=== PATIENT | female | born 1975 | race Caucasian/White ===

== ENCOUNTER 2022-03-09 16:38 | Emergency (ER) | payer MEDICAID, SELFPAY ==
[2022-03-09 16:39] VITALS: BP 142/92; PULSE 131; RESP 18; TEMP 36.2; O2SAT 99; BMI 20.5
--- NOTE | 2022-03-09 20:10 | ED.RN ---
PT STATES SHE HAS ONLY BEEN CONSUMING ETOH FOR PAST 3 DAYS. ADMITS TO9 APPROX 1 PINT OF 80% VODKA PER DAY. FRIEND AT BEDSIDE STATING PT HAS BEEN DRINKING MUCH LONGER AND LARGER AMOUNTS. PT CONTINUES TO ADAMANTLY DENY.
[2022-03-09 20:11] LABS: Absolute Lymphocyte Count 2.16 X10^3/uL (0.83-4.51); Absolute Neutrophil Count 4.6 X10^3/uL (2.0-7.7); Basophil# 0.08 X10^3/uL; Basophil% 1.1 % (0-1); Eosinophil# 0.02 X10^3/uL; Eosinophils% 0.3 % (0-5); Hematocrit 40.3 % (37-47); Hemoglobin 13.9 g/dL (12.0-15.0); Lymphocyte # 2.16 X10^3/ul (0.83-4.51); Lymphocyte % 28.9 % (19-41); Mean Corp Hgb Conc 34.5 g/dL (32-36); Mean Corpuscular Hgb 31.4 pg (27.0-32.0); Mean Platelet Vol. 9.2 fl (6.2-12.0); Monocyte# 0.62 X10^3/uL; Monocyte% 8.3 % (0-10); NRBC Flagged by Analyzer 0 % (0-5); Neutrophil # 4.58 X10^3/uL (2.7-7.7); Neutrophil % 61.3 % (47-70); Platelet Count 358 K/mm3 (150-450); RBC Distribution Width CV 15.1 % (11.6-14.6); RBC Distribution Width SD 50.5 fl (35.1-43.9); Red Blood Count 4.43 M/mm3 (4.2-5.4); White Blood Count 7.5 K/mm3 (4.4-11.0)
[2022-03-09 20:22] LABS: Internal QC Validated? YES +Cl - CLEAR BKGD; Pregnancy, Serum, hCG Quali. NEGATIVE Negative
[2022-03-09 20:24] LABS: Anion Gap 10 (5-15); BUN 5 mg/dL (7-18); BUN/Creat Ratio 5.1 RATIO (10-20); Calcium,Total 9.3 mg/dL (8.5-10.1); Chloride 100 mmol/L (98-107); Creatinine, Serum 0.99 mg/dL (0.55-1.02); EST Glomerular Filtration Rate 64 mL/min (>60); Est Glom Filt Rate - Afr Amer 78 mL/min (>60); Estimated Creatinine Clearance 61.01 ml/min; Glucose 167 mg/dL (74-106); Potassium 3.4 mmol/L (3.5-5.1); Sodium Level 137 mmol/L (136-145)
[2022-03-09 20:37] LABS: Amphetamine Urine VISTA NEGATIVE (<1000 ng/mL); Barbiturate Urine VISTA NEGATIVE (< 200 ng/mL); Benzodiazepine Urine VISTA NEGATIVE (< 200 ng/mL); Cocaine Urine VISTA NEGATIVE (< 300 ng/mL); Ecstacy Urine VISTA NEGATIVE (< 500 ng/mL); Methadone Urine VISTA NEGATIVE (< 300 ng/mL); PCP Urine VISTA NEGATIVE (< 25 ng/mL); THC Urine VISTA NEGATIVE (< 50 ng/mL); Vista UDS pH Range 6
--- NOTE | 2022-03-09 22:03 | ED.RN ---
PT'S FRIEND UPSET AND LEFT, PT HAS NO RIDE HOME. PT CONTINUES TO DENY ALCOHOLISM OR NEED FOR ADMISSION. PT IS LEGALLY INTOXICATED, INFORMED SHE NEEDS TO HAVE A SOBER RIDE HOME.
--- NOTE | 2022-03-10 01:31 | EDS_ITS ---
HPI History of Present Illness Chief Complaint: ETOH Intox Informant: patient Narrative Narrative: Patient presents with a friend asking for alcohol detox. She states she has been drinking for 3 days and prior to that was not a drinker. She states she is drinking about a pint of 80 proof vodka per day. She last drank just prior to arrival. She states in the mornings she is not feeling shaky or having other symptoms of withdrawal. When asked why she feels the need to be here, she states she cannot stop drinking. She states that she is drinking because she is extremely stressed regarding her ex- and children. She denies using any other substances along with the alcohol. PFSH PFSH Medical History no medical history no medical history Allergy/AdvReac Type Severity Reaction Status Date / Time No Known Allergies Allergy Verified 03/09/22 16:39 Social History Smoking Status: Never smoker ROS ROS ED Constitutional Constitutional ED: Denies chills or fever(s) Eyes Eyes: Denies change in vision or diplopia ENT ENT ED: Denies rhinorrhea or sore throat Cardiovascular Cardiovascular: Denies chest pain or palpitations Respiratory/Chest Respiratory/Chest: Denies cough or dyspnea Gastrointestinal Gastrointestinal: Denies abdominal pain, diarrhea, nausea or vomiting Genitourinary Genitourinary ED: Denies dysuria or hematuria Musculoskeletal Musculoskeletal: Denies back pain or neck pain Integumentary Denies abscess or rash Neurologic Neurologic: Denies headache(s), paresthesias or weakness Psychiatric Psychiatric: Denies anxiety or suicidal thoughts EXAM Physical Exam Const Vital Signs: 03/09/22 16:39 Temperature 97.1 F L Temperature Source Temporal Pulse Rate 131 H Respiratory Rate 18 Blood Pressure 142/92 H Blood Pressure Mean 108 Pulse Ox 99 Oxygen Delivery Method Room Air Positive well nourished and well developed Constitutional Narrative: grossly intoxicated General Appearance ED: well developed and NAD HEENT Reports moist mucous membranes normocephalic and atraumatic Eyes PERRL and EOMs intact bilaterally Neck full ROM and supple Resp normal respiratory effort Effort and Inspection: able to speak in complete sentences GI non-distended Back/Spine General Back: other FROM Extremity normal to inspection General Extremety ED: Negative for edema, pulses abnormal or tenderness General Extremity: Negative for edema or pulses abnormal Neuro oriented x3, CN's II-XII intact bilaterally and no sensory deficits noted Sensorium / Orientation: awake and alert Motor Exam: strength 5/5 throughout Psych thought process normal Skin no rashes or lesions noted and no wounds MDM MDM MDM Narrative Medical decision making narrative: I advised the patient that from her history, she does not sound like she needs inpatient detox. Her friend chimed in and stated she believed she had been drinking more than the patient let on, and for longer, but the patient would cut her off and tell her she was incorrect. The friend said that she drinks several pints of liquor just today prior to coming here and the patient said that was incorrect. The patient denies any suicidality when asked directly. I advised her that I wanted to get her help regarding her recent alcohol binge, however if she was only drinking for the past 3 days and not having any withdrawal symptoms, I do not think she needs inpatient alcohol detox. I advised her that the best way to sort out whether she needed detox or not was to allow her to rest here in the ER overnight since she presents around [id number], and to see if she has withdrawal symptoms when she christos up. I also offered to find her other resources to help other than inpatient admission if she does not require it. She declared understanding. She does appear intoxicated. Her alcohol is consistent with that, with an extremely high 358. The rest of her labs are unremarkable. The ED was extremely busy, and later in the visit nursing told me that she wanted to leave and they kept her from doing so, given that she was so intoxicated; she did not require restraint and was cooperative. A couple hours later, nursing witnessed her friend eloping with her out of the emergency department and the patient walking steadily without assistance. Lab Data Attestation: I reviewed the patient's lab results. Labs: Laboratory Results - last 24 hr 03/09/22 03/09/22 03/09/22 20:00 20:00 20:00 WBC 7.5 RBC 4.43 Hgb 13.9 Hct 40.3 MCV 91.0 MCH 31.4 MCHC 34.5 RDW Std Deviation 50.5 H RDW Coeff of Paul 15.1 H Plt Count 358 MPV 9.2 Immature Gran % (Auto) 0.100 Neut % (Auto) 61.3 Lymph % (Auto) 28.9 [place] % (Auto) 8.3 Eos % (Auto) 0.3 Baso % (Auto) 1.1 H Absolute Neuts (auto) 4.6 Absolute Lymphs (auto) 2.16 Nucleated RBC % 0 Sodium 137 Potassium 3.4 L Chloride 100 Carbon Dioxide 27.0 Anion Gap 10 BUN 5 L Creatinine 0.99 Estim Creat Clear Calc 61.01 Est GFR (MDRD) Af Amer 78 Est GFR (MDRD) Non-Af 64 BUN/Creatinine Ratio 5.1 L Glucose 167 H Calcium 9.3 Serum , Qual Urine Opiates Screen Urine Methadone Screen Ur Barbiturates Screen Ur Phencyclidine Scrn Ur Amphetamines Screen MDMA (Ecstasy) Screen U Benzodiazepines Scrn Urine Cocaine Screen U Cannabinoids Screen Ur Drug Screen Comment Ethyl Alcohol 358.0 H* 03/09/22 03/09/22 20:00 20:00 WBC RBC Hgb Hct MCV MCH MCHC RDW Std Deviation RDW Coeff of Paul Plt Count MPV Immature Gran % (Auto) Neut % (Auto) Lymph % (Auto) [place] % (Auto) Eos % (Auto) Baso % (Auto) Absolute Neuts (auto) Absolute Lymphs (auto) Nucleated RBC % Sodium Potassium Chloride Carbon Dioxide Anion Gap BUN Creatinine Estim Creat Clear Calc Est GFR (MDRD) Af Amer Est GFR (MDRD) Non-Af BUN/Creatinine Ratio Glucose Calcium Serum , Qual NEGATIVE Urine Opiates Screen NEGATIVE Urine Methadone Screen NEGATIVE Ur Barbiturates Screen NEGATIVE Ur Phencyclidine Scrn NEGATIVE Ur Amphetamines Screen NEGATIVE MDMA (Ecstasy) Screen NEGATIVE U Benzodiazepines Scrn NEGATIVE Urine Cocaine Screen NEGATIVE U Cannabinoids Screen NEGATIVE Ur Drug Screen Comment Ethyl Alcohol Discharge Plan Triage Chief Complaint: ETOH Intox ED Provider: Kristopher Hernandez Dx/Rx/DC Orders Clinical Impression: Alcohol intoxication Primary Care Provider: Care Physician,No Primary Referrals: Care Physician,No Primary [Primary Care Provider] - Disposition Disposition: Elopement Discharge Date/Time: 03/09/22 22:26
== END 2022-03-09 22:26 | disposition left against medical advice (07) ==
PROVIDERS: Emergency Provider Emergency Medicine; Visit Provider Emergency Medicine
DX: F10.129 Alcohol abuse with intoxication, unspecified (principal); Y90.8 Blood alcohol level of 240 mg/100 ml or more
CPT/HCPCS: 80048; 80307; 82077; 84703; 85025; 99283; A4216